=== PATIENT | male | born 1950 | race Caucasian/White ===

== ENCOUNTER 2018-04-26 12:44 | Outpatient (CLI) | payer OTHER ==
[~2018-04-26 12:44] MED LIST: MINERALS; VIT; lipitor
== END 2018-04-26 19:58 | disposition home or self-care (01) ==
LOC: SUS 12:44
PROVIDERS: ATTEND Urology
DX: I86.1 Scrotal varices (principal); N43.2 Other hydrocele
CPT/HCPCS: 76870-TC